=== PATIENT | female | born 1950 | race Caucasian/White ===

== ENCOUNTER 2017-02-12 09:14 | Observation (INO) | payer OTHER ==
[2017-02-12] VITALS (7 sets, daily range): BP systolic 95–161; BP diastolic 43–87
[~2017-02-12] VITALS: Ht 170.2 cm; Wt 180.9 kg
--- NOTE | 2017-02-12 10:22 | DIAGNOSTIC IMAGING REPORT ---
PROCEDURE: XR FOOT 3 VIEWS - RIGHT INDICATION: TRAUMA/INJURY TECHNIQUE: Three views. COMPARISON: None. FINDINGS: Osseous structures and joint spaces are normal in the foot. There is a medial malleolar fracture. IMPRESSION: 1. Normal right foot.
--- NOTE | 2017-02-12 10:24 | DIAGNOSTIC IMAGING REPORT ---
PROCEDURE: XR ANKLE 3 OR 4 VIEWS - RIGHT INDICATION: TRAUMA/INJURY TECHNIQUE: Four views. COMPARISON: None. FINDINGS: Comminuted fracture through the distal tibia and the medial malleolus. There is asymmetry of the ankle mortise. IMPRESSION: 1. Comminuted fracture through the distal tibia and the medial malleolus.
--- NOTE | 2017-02-12 10:52 | ED ORDER SUMMARY ---
..... Patient: BELINDA DELVALLE OrderSheet [facility] VisitID: [id number] [place] [address] 66y, F Registration Date/Time: 02/12/2017 ORDER SHEET Weight: 172.3 kg (stated) Allergies: Percocet GENERAL ORDERS: Ankle 3 or 4V Right Urgent (09:45 02/12/2017 Ana Lilia HURD) (Ack 9:46 Dawna) (10:15 KWdede R.N.) Foot 3V Right Urgent (09:46 02/12/2017 Ana Lilia HURD) (Ack 9:47 Dawna) (10:15 Maria De Jesus R.N.) Chest 1V Urgent (10:52 02/12/2017 Ana Lilia HURD) (Ack 11:04 Dawna) (11:30 NKneeland R.N.) Cardiac Panel Stat (10:52 02/12/2017 Ana Lilia HURD) (Ack 11:04 Dawna) (11:29 NKneeland R.N.) EKG - ER Stat (10:52 02/12/2017 Ana Lilia HURD) (Ack 11:04 Dawna) (11:29 LNations ER Tech1) (11:30 NKneeland R.N.) PT with INR Urgent (13:03 02/12/2017 Ana Lilia HURD) (Ack 13:07 Dawna) PTT Urgent (13:03 02/12/2017 Ana Lilia HURD) (Ack 13:07 Dawna) MEDICATION ORDERS: IV FLUIDS: IV NS : initial bolus none -, then 150 mL/hr for 4h (NOW); Routine (10:52 02/12/2017 Ana Lilia HURD) (Ack 10:55 Palmer R.N.) (11:46 KWdede R.N.) ORDER SHEET NOTES: [Electronically signed by Yesika Giordano R.N. (14:27 02/12/2017)] [Electronically signed by Jere Barber MD (16:14 02/12/2017)] [Electronically locked/signed by Yesika Giordano R.N. (14:27 02/12/2017)]
--- NOTE | 2017-02-12 10:52 | ED ORDER SUMMARY ---
..... Patient: BELINDA DELVALLE OrderSheet [facility] VisitID: [id number] [place] [address] 66y, F Registration Date/Time: 02/12/2017 ORDER SHEET Weight: 172.3 kg (stated) Allergies: Percocet GENERAL ORDERS: Ankle 3 or 4V Right Urgent (09:45 02/12/2017 Ana Lilia HURD) (Ack 9:46 Dawna) (10:15 KWdede R.N.) Foot 3V Right Urgent (09:46 02/12/2017 Ana Lilia HURD) (Ack 9:47 Dawna) (10:15 Maria De Jesus R.N.) Chest 1V Urgent (10:52 02/12/2017 Ana Lilia HURD) (Ack 11:04 Dawna) (11:30 NKneeland R.N.) Cardiac Panel Stat (10:52 02/12/2017 Ana Lilia HURD) (Ack 11:04 Dawna) (11:29 NKneeland R.N.) EKG - ER Stat (10:52 02/12/2017 Ana Lilia HURD) (Ack 11:04 Dawna) (11:29 LNations ER Tech1) (11:30 NKneeland R.N.) PT with INR Urgent (13:03 02/12/2017 Ana Lilia HURD) (Ack 13:07 Dawna) PTT Urgent (13:03 02/12/2017 Ana Lilia HURD) (Ack 13:07 Dawna) MEDICATION ORDERS: IV FLUIDS: IV NS : initial bolus none -, then 150 mL/hr for 4h (NOW); Routine (10:52 02/12/2017 Ana Lilia HURD) (Ack 10:55 Palmer R.N.) (11:46 KWdede R.N.) ORDER SHEET NOTES: [Electronically signed by Yesika Giordano R.N. (14:27 02/12/2017)] [Electronically signed by Jere Barber MD (16:14 02/12/2017)] [Electronically locked/signed by Yesika Giordano R.N. (14:27 02/12/2017)]
--- NOTE | 2017-02-12 10:52 | ED NURSING NOTES ---
Clinical Report - Nurses [facility] [address] [place] [address] 02/12/2017 9:18 Patient: BELINDA DELVALLE TRIAGE Triage time 09:12. Acuity: LEVEL 3. Chief Complaint: FALL OFF A CHAIR. Alert. No acute distress. SEPSIS SCREEN: Sepsis Screen. Negative (no infection suspected/documented). Respiratory rate greater than 20. Temperature not greater than 38.3 degrees C (101 degrees F). Heart rate not greater than 90. MARSHA COMA SCORE: [place] Coma Scale: 15- eyes open spontaneously (4); best verbal response- oriented x 4 (5); best motor response- obeys commands (6). --09:21 Yesika Giordano R.N. 09:15 02/12/17. BP: 159/64. HR: 78. RR: 22. O2 saturation: 98% on room air. Temp: 98.8 F (oral). Pain level now 5/10. --09:21 Yesika Giordano R.N. Weight: 172.3 kg stated. Height/Length: 67 inches Per Patient. BMI: 59.5. --09:15 Yesika Giordano R.N. Medications None. --09:18 Yesika Giordano R.N. Medication/allergy information source: the patient. --09:21 Yesika Giordano R.N. Allergies Percocet.(nausea) (severe headache) --12:22 Yesika Giordano R.N. The following entry was struck by Yesika Giordano R.N., 12:21 (02/12/17) Reason - other. <<STRICKEN ENTRY-- No Known Drug Allergy. --09:18 Yesika Giordano R.N. --END STRIKE>>. History Arrived by private vehicle. Historian: EMS and patient. Primary physician (NO PCP). ( pt was on her new deck in her wheelchair sunday and rolled off the edge of the deck, falling approx 22 inches. C/O right ankle and foot pain since sunday. States she had back surgery in 2013 and has had some right foot deficits and neuropathy since the surgery.). Location of injuries: right ankle and right foot. This occurred (2 days ago). Occurred at home. Trauma activation: Pre-hospital notification of patient arrival was received. SOCIAL HX: Never smoker. No alcohol use or drug use. ABUSE ASSESSMENT: Abuse assessment: The patient was asked "Do you feel safe in your home?". No report of abuse. FALL RISK ASSESSMENT: Fall risk assessment completed. No fall risk identified. NUTRITIONAL RISK ASSESSMENT: The nutritional risk assessment revealed no deficiencies. FUNCTIONAL ASSESSMENT: Functional assessment: no impairments noted. LEARNING NEEDS ASSESSMENT: The learning needs assessment revealed no barriers. SKIN INTEGRITY ASSESSMENT: Skin integrity risk assessment completed. No skin integrity risk identified. --09:21 Yesika Giordano R.N. Treatment CDA TEACHER: EMS treatment CDA TEACHER verbally communicated. BP: 140/70. HR: 70. RR: 20. O2 saturation: 97 % room air. Upon arrival patient awake. --09:24 Yesika Giordano R.N. PROBLEMS: Back Pain. Obesity. Sciatica. Herniated Disk. --09:20 Yesika Giordano R.N. ADDITIONAL SURGERIES: Back Surgery. Breast Augmentation. Tish burton. --09:20 Yesika Giordano R.N. Assessment GENERAL / NEURO / PSYCH: Alert. Oriented X 4. Appears in no acute distress. Patient appears calm and cooperative. RESPIRATORY: Respirations not labored. CVS: Pulses: right dorsalis pedis 3+ and left dorsalis pedis 3+. Capillary refill less than 2 seconds. GI / : Abdomen soft. --09:21 Yesika Giordano R.N. Interventions ID band on patient. To treatment room. --09:21 Yesika Giordano R.N. PHYSICAL ASSESSMENT To room via stretcher. GENERAL / NEURO / PSYCH: Alert. Oriented X 4. Appears in no acute distress. RESPIRATORY: Respirations not labored. CVS: Capillary refill less than 2 seconds. GI / : Abdomen soft. EXTREMITIES: Neuro-vascular status intact to the extremity. Right ankle: tenderness (slight swelling to R ankle). Right foot: tenderness. SKIN: Skin is warm and dry. --09:22 Yesika Giordano R.N. NURSING PROGRESS NOTES The plan of care for this patient has been created. Cold pack applied to the right ankle. Extremity elevated. Call light placed in reach. Bed placed in lowest position. Brakes of bed on. --09:23 Yesika Giordano R.N. ( H&P form given to patient.). --10:58 Shira Prather EKG time: (1147). EKG was ordered, performed by a tech and shown to the ED physician. --11:30 Gena Ernandez ER Tech1 11:31 02/12/2017 Site #1 started via IV in the left forearm with an 20g angiocath, with aseptic technique and good blood return; one attempt. Blood drawn: rainbow set. Labeled in the presence of the patient and sent to the lab. Saline lock flushed with 10 mL saline. --11:46 Yesika Giordano R.N. 11:41 02/12/2017 Started bag #1 1000 mL IV Fluids IV NS (Saline); at 150 mL/hr over 4 hour(s) via site #1. Allergies verified and confirmed 5 rights. IV patency established. IV site checked: no pain, redness, or swelling. IV flushed thoroughly pre- and post-medication administration. --11:46 Yesika Giordano R.N. Patient ID band checked for patient name, birthdate and medical record number: patient confirmed. Catheterized urine collected with return of yellow-colored clear urine; odor is foul-smelling; sample sent to lab for urinalysis. Specimen labeled in the presence of the patient. Call light placed in reach of patient. --11:48 Geeta Gonzalez R.N. 11:46 02/12/17. BP: 161/54. HR: 76. RR: 18. O2 saturation: 96%. Pain level now: 11/06. Additional comments: pain located r ankle. --11:48 Geeta Gonzalez R.N. DISPOSITION / DISCHARGE 13:13 02/12/17. Departure time: 1313. Admitted via Surgery. Report was given to a nurse in person. Report included patient's care, treatment, medications, reviewed medication reconcilliation, and condition (including any recent changes or anticipated changes). All questions were answered. (OFFICE SUPPORT SPECIALIST). Patient's personal items; items were transported with the patient. --13:13 Yesika Giordano R.N. Report was given. (Cheryl). --13:16 Yesika Giordano R.N. 13:15 02/12/17. BP: 149/63. HR: 74. RR: 16. O2 saturation: 95% on room air. Pain level now 0/10. --13:16 Yesika Giordano R.N. Locked/Released at 02/12/2017 14:27 by Yesika Giordano R.N.
--- NOTE | 2017-02-12 10:52 | ED NURSING NOTES ---
Clinical Report - Nurses [facility] [address] [place] [address] 02/12/2017 9:18 Patient: BELINDA DELVALLE TRIAGE Triage time 09:12. Acuity: LEVEL 3. Chief Complaint: FALL OFF A CHAIR. Alert. No acute distress. SEPSIS SCREEN: Sepsis Screen. Negative (no infection suspected/documented). Respiratory rate greater than 20. Temperature not greater than 38.3 degrees C (101 degrees F). Heart rate not greater than 90. MARSHA COMA SCORE: [place] Coma Scale: 15- eyes open spontaneously (4); best verbal response- oriented x 4 (5); best motor response- obeys commands (6). --09:21 Yesika Giordano R.N. 09:15 02/12/17. BP: 159/64. HR: 78. RR: 22. O2 saturation: 98% on room air. Temp: 98.8 F (oral). Pain level now 5/10. --09:21 Yesika Giordano R.N. Weight: 172.3 kg stated. Height/Length: 67 inches Per Patient. BMI: 59.5. --09:15 Yesika Giordano R.N. Medications None. --09:18 Yesika Giordano R.N. Medication/allergy information source: the patient. --09:21 Yesika Giordano R.N. Allergies Percocet.(nausea) (severe headache) --12:22 Yesika Giordano R.N. The following entry was struck by Yesika Giordano R.N., 12:21 (02/12/17) Reason - other. <<STRICKEN ENTRY-- No Known Drug Allergy. --09:18 Yesika Giordano R.N. --END STRIKE>>. History Arrived by private vehicle. Historian: EMS and patient. Primary physician (NO PCP). ( pt was on her new deck in her wheelchair sunday and rolled off the edge of the deck, falling approx 22 inches. C/O right ankle and foot pain since sunday. States she had back surgery in 2013 and has had some right foot deficits and neuropathy since the surgery.). Location of injuries: right ankle and right foot. This occurred (2 days ago). Occurred at home. Trauma activation: Pre-hospital notification of patient arrival was received. SOCIAL HX: Never smoker. No alcohol use or drug use. ABUSE ASSESSMENT: Abuse assessment: The patient was asked "Do you feel safe in your home?". No report of abuse. FALL RISK ASSESSMENT: Fall risk assessment completed. No fall risk identified. NUTRITIONAL RISK ASSESSMENT: The nutritional risk assessment revealed no deficiencies. FUNCTIONAL ASSESSMENT: Functional assessment: no impairments noted. LEARNING NEEDS ASSESSMENT: The learning needs assessment revealed no barriers. SKIN INTEGRITY ASSESSMENT: Skin integrity risk assessment completed. No skin integrity risk identified. --09:21 Yesika Giordano R.N. Treatment ZIG ZAG SPRING MACHINE OPERATOR: EMS treatment ZIG ZAG SPRING MACHINE OPERATOR verbally communicated. BP: 140/70. HR: 70. RR: 20. O2 saturation: 97 % room air. Upon arrival patient awake. --09:24 Yesika Giordano R.N. PROBLEMS: Back Pain. Obesity. Sciatica. Herniated Disk. --09:20 Yesika Giordano R.N. ADDITIONAL SURGERIES: Back Surgery. Breast Augmentation. Tish burton. --09:20 Yesika Giordano R.N. Assessment GENERAL / NEURO / PSYCH: Alert. Oriented X 4. Appears in no acute distress. Patient appears calm and cooperative. RESPIRATORY: Respirations not labored. CVS: Pulses: right dorsalis pedis 3+ and left dorsalis pedis 3+. Capillary refill less than 2 seconds. GI / : Abdomen soft. --09:21 Yesika Giordano R.N. Interventions ID band on patient. To treatment room. --09:21 Yesika Giordano R.N. PHYSICAL ASSESSMENT To room via stretcher. GENERAL / NEURO / PSYCH: Alert. Oriented X 4. Appears in no acute distress. RESPIRATORY: Respirations not labored. CVS: Capillary refill less than 2 seconds. GI / : Abdomen soft. EXTREMITIES: Neuro-vascular status intact to the extremity. Right ankle: tenderness (slight swelling to R ankle). Right foot: tenderness. SKIN: Skin is warm and dry. --09:22 Yesika Giordano R.N. NURSING PROGRESS NOTES The plan of care for this patient has been created. Cold pack applied to the right ankle. Extremity elevated. Call light placed in reach. Bed placed in lowest position. Brakes of bed on. --09:23 Yesika Giordano R.N. ( H&P form given to patient.). --10:58 Shira Prather EKG time: (1147). EKG was ordered, performed by a tech and shown to the ED physician. --11:30 Gena Ernandez ER Tech1 11:31 02/12/2017 Site #1 started via IV in the left forearm with an 20g angiocath, with aseptic technique and good blood return; one attempt. Blood drawn: rainbow set. Labeled in the presence of the patient and sent to the lab. Saline lock flushed with 10 mL saline. --11:46 Yesika Giordano R.N. 11:41 02/12/2017 Started bag #1 1000 mL IV Fluids IV NS (Saline); at 150 mL/hr over 4 hour(s) via site #1. Allergies verified and confirmed 5 rights. IV patency established. IV site checked: no pain, redness, or swelling. IV flushed thoroughly pre- and post-medication administration. --11:46 Yesika Giordano R.N. Patient ID band checked for patient name, birthdate and medical record number: patient confirmed. Catheterized urine collected with return of yellow-colored clear urine; odor is foul-smelling; sample sent to lab for urinalysis. Specimen labeled in the presence of the patient. Call light placed in reach of patient. --11:48 Geeta Gonzalez R.N. 11:46 02/12/17. BP: 161/54. HR: 76. RR: 18. O2 saturation: 96%. Pain level now: 11/06. Additional comments: pain located r ankle. --11:48 Geeta Gonzalez R.N. DISPOSITION / DISCHARGE 13:13 02/12/17. Departure time: 1313. Admitted via Surgery. Report was given to a nurse in person. Report included patient's care, treatment, medications, reviewed medication reconcilliation, and condition (including any recent changes or anticipated changes). All questions were answered. (MEDICAL RECORD TECHNICIAN). Patient's personal items; items were transported with the patient. --13:13 Yesika Giordano R.N. Report was given. (Cheryl). --13:16 Yesika Giordano R.N. 13:15 02/12/17. BP: 149/63. HR: 74. RR: 16. O2 saturation: 95% on room air. Pain level now 0/10. --13:16 Yesika Giordano R.N. Locked/Released at 02/12/2017 14:27 by Yesika Giordano R.N.
--- NOTE | 2017-02-12 10:52 | ED CLINICAL REPORT ---
Clinical Report - Physicians/Mid Levels [facility] [address] [place] [address] 02/12/2017 9:18 Patient: BELINDA DELVALLE Time Seen: 09:35 Feb 12 2017. Arrived- By ambulance. Historian- patient and EMS personnel. CPT: ER phys charges level 5 plus (#[id number]). EKG interpretation (#[id number]). HISTORY OF PRESENT ILLNESS Chief Complaint: Injury to the right ankle. The injury happened today. The patient sustained a twisting injury. Fell. Occurred at home. ( ( pt was on her new deck in her wheelchair sunday and rolled off the edge of the deck, falling approx 22 inches. C/O right ankle and foot pain since sunday. States she had back surgery in 2013 and has had some right foot deficits and neuropathy since the surgery.). Location of injuries: right ankle and right foot. This occurred (2 days ago). Occurred at home.). Patient is experiencing moderate pain. No other injury. REVIEW OF SYSTEMS The patient complains of pain on weight bearing. She has had swelling,, tingling, and weakness. No suspected foreign body, skin laceration, lesions or rash or chills. No fever, nasal congestion, sore throat, chest pain or cough. No difficulty breathing, palpitations, abdominal pain, black stools or bloody stools. No diarrhea, nausea, vomiting, urinary frequency or fainting episodes. No weakness, diabetic symptoms, easy bruising or difficulty with urination. She has had calf pain and pedal edema and complains of pain on weight bearing. All systems otherwise negative, except as recorded above. PAST HISTORY Back Pain. Obesity. Sciatica. Herniated Disk. ADDITIONAL SURGERIES: Back Surgery. Breast Augmentation. Tummy tuck. Medications: None. Allergies: No Known Drug Allergy. SOCIAL HISTORY Never smoker. No alcohol use or drug use. ADDITIONAL NOTES The nursing notes have been reviewed. PHYSICAL EXAM Vital Signs: 02/12/2017 09:15 BP: 159/64. HR: 78. RR: 22. O2 saturation: 98%. Temp: 98.8 F. Appearance: Alert. Appears to be in pain. Patient in moderate distress. Head: Head atraumatic. Eyes: Eyes normal inspection. ENT: Pharynx normal. Neck: Normal inspection. Neck supple. C-spine non-tender. CVS: Normal heart rate and rhythm. Heart sounds normal. Pulses normal. No decreased pulses. Respiratory: No respiratory distress. Breath sounds normal. Chest nontender. Abdomen: Soft and nontender. Bowel sounds normal. Back: Normal inspection. No tenderness. Skin: Skin intact. No cyanosis. Skin warm. Extremities: Right lateral ankle: moderate tenderness, swelling and deformity consistent with a fracture and medium sized ecchymosis of the lateral ligaments moderate and lateral malleolus. Limited ROM secondary to pain. Joint effusion present. Neurovascular intact distally. No ligamentous laxity present. Right foot: moderate tenderness and mild swelling located in the proximal aspect of the foot. Limited weight bearing secondary to pain. Neurovascular intact distally. No abrasion, ecchymosis or deformity. Foot and ankle exam otherwise negative. Extremities otherwise negative. Gait: Gait not tested due to pain. Neuro, Vascular and Tendons: Vascular status intact. Sensation intact. Motor intact. Neuro: Oriented X 3. No motor deficit. No sensory deficit. LABS, X-RAYS, AND EKG EKG: No acute ischemia. Normal sinus rhythm. Normal P waves. Normal KATIUSKA. Decreased QRS voltage in the limb leads. Normal axis. Normal ST and T waves. Prior EKG unavailable. The study has been interpreted contemporaneously. The study has been independently viewed by me. The EKG appears to be a good tracing. X-Rays: Chest X-ray negative. Right foot negative. Rt Ankle X-ray: Moderately displaced, minimally angulated, comminuted, oblique fracture of the right tibia, (Intra-articular). Views: 3 view ankle series. Technique: good. The X-rays were independently viewed by me and interpreted contemporaneously by me. Prior films were not available for comparison. Laboratory Tests: CBC w Diff: (JARAD: 02/12/2017 11:25) ( MsgRcvd 02/12/2017 11:41) Final results Test Result Flag Units (Reference) WHITE BLOOD COUNT 11.5 K/uL (4.5-11.5) RED BLOOD COUNT 4.57 M/uL (4.00-5.20) HEMOGLOBIN 12.9 gm/dL (12.0-16.0) HEMATOCRIT 38.9 % (36.0-46.0) MEAN CELL VOLUME 85 fL (80-100) MEAN CORPUSCULAR HGB 28 pg (26-34) MEAN CORPUSCULAR HGB CONC 33 g/dL (31-37) RED CELL DISTRIBUTION WIDTH 14.0 % (11.6-14.8) PLATELET COUNT 227 K/uL (150-400) NEUTROPHIL % 70.4 % (50-75) LYMPH % 19.7 L % (25-40) MONO % 7.8 % (3-14) EOSINOPHIL % 1.0 % (0-4) BASOPHIL % 1.1 % (0-2) CHEM 13 PANEL: (JARAD: 02/12/2017 11:25) ( MsgRcvd 02/12/2017 11:57) Final results Test Result Flag Units (Reference) GLUCOSE 121 H mg/dL (70-110) BUN 10 mg/dL (7-18) CREATININE 0.8 mg/dL (0.6-1.3) Estimated GFR >60 mL/min Estimated GFR- >60 mL/min Note: Persistent reduction over 3 months in eGFR<60 mL/min/1.73 m2 defines CKD. Patients with eGFR values>=60 mL/min/1.73 m2 may also have CKD if evidence ofpersistent proteinuria. Additional information may be foundat www.kidney.org. SODIUM 141 mmol/L (136-145) POTASSIUM 3.9 mmol/L (3.5-5.1) CHLORIDE 105 mmol/L (98-107) CARBON DIOXIDE 28 mmol/L (21-32) CALCIUM 8.8 mg/dL (8.5-10.1) TOTAL PROTEIN 7.8 g/dL (6.4-8.2) ALBUMIN 3.6 g/dL (3.3-5.0) BILIRUBIN, TOTAL 0.7 mg/dL (0.0-1.0) ALKALINE PHOSPHATASE 74 U/L (46-116) AST (SGOT) 21 U/L (15-37) ALT (SGPT) 30 U/L (12-78) MAGNESIUM 2.1 mg/dL (1.8-2.4) CPK 199 U/L (24-260) TROPONIN I <0.05 L ng/mL (0.00-1.5) TROPONIN REFERENCE RANGE:<0.1 NEGATIVE0.1-1.5 INDETERMINANT>1.5 POSITIVE . PROGRESS AND PROCEDURES Course of Care: CXR pending. Dr Gregory here to see patient. Discussed case with on-call health care provider, (Colt). Reviewed test results. Agreed upon treatment plan and decision to admit. Health care provider will see patient in ED. Patient/family counseled. Disposition orders written. Disposition: Admitted to Acute Care via Surgery. (Electronically signed by Jere Barber MD 02/12/2017 16:14)
--- NOTE | 2017-02-12 12:05 | DIAGNOSTIC IMAGING REPORT ---
PROCEDURE: XR CHEST 1 VIEW INDICATION: PRE-OP TECHNIQUE: Portable AP view 11:18 a.m. COMPARISON: None. FINDINGS: Lungs are clear. Heart and mediastinum are normal. Thorax is normal. IMPRESSION: 1. Negative chest.
--- NOTE | 2017-02-12 16:14 | ED MAR SUMMARY ---
..... Medication Administration Record [facility] [address] [place] [address] Patient: BELINDA DELVALLE Visit ID: [id number] 66y, F Weight: 172.3 kg Height/Length: 67 in BMI: 59.5 ALLERGIES: Percocet Start 11:41 02/12/2017 Yesika Giordano RMeeta Medication Administered: IV NS (SALINE), Dose: IV Fluids over 4 hour(s), Rate: 150 mL/hr, Dispensed: 1000 mL bag, Site: #1 left forearm. Medication Ordered: IV NS : initial bolus none -, then 150 mL/hr for 4h (NOW); Routine.
--- NOTE | 2017-02-12 16:14 | ED MAR SUMMARY ---
..... Medication Administration Record [facility] [address] [place] [address] Patient: BELINDA DELVALLE Visit ID: [id number] 66y, F Weight: 172.3 kg Height/Length: 67 in BMI: 59.5 ALLERGIES: Percocet Start 11:41 02/12/2017 Yesika Giordano RMeeta Medication Administered: IV NS (SALINE), Dose: IV Fluids over 4 hour(s), Rate: 150 mL/hr, Dispensed: 1000 mL bag, Site: #1 left forearm. Medication Ordered: IV NS : initial bolus none -, then 150 mL/hr for 4h (NOW); Routine.
--- NOTE | 2017-02-12 16:14 | ED MED RECONCILIATION SUMMARY ---
Patient: BELINDA DELVALLE Medication Reconciliation Report [facility] VisitID: [id number] [address] [place] [address] 66y, F Registration Date/Time: 02/12/2017 Weight: 172.3 kg Height/Length: 67 in. BMI: 59.5 ALLERGIES: Percocet The patient's Home Medications are listed below: NONE. The source(s) of the original Home Medication information: patient The following Medications were given to the patient in the Emergency Department: IV NS IV Fluids bolus 0, then 150 mL/hr, administered: 02/12/2017 11:41:00 AM The following Medications were prescribed to the patient: None.
--- NOTE | 2017-02-12 16:14 | ED MED RECONCILIATION SUMMARY ---
Patient: BELINDA DELVALLE Medication Reconciliation Report [facility] VisitID: [id number] [address] [place] [address] 66y, F Registration Date/Time: 02/12/2017 Weight: 172.3 kg Height/Length: 67 in. BMI: 59.5 ALLERGIES: Percocet The patient's Home Medications are listed below: NONE. The source(s) of the original Home Medication information: patient The following Medications were given to the patient in the Emergency Department: IV NS IV Fluids bolus 0, then 150 mL/hr, administered: 02/12/2017 11:41:00 AM The following Medications were prescribed to the patient: None.
--- NOTE | 2017-02-12 16:40 | Operative Report ---
Operative Report Date of Surgery: February 12, 2017 Preoperate Diagnosis: right tibia fracture Postoperative Diagnosis: right tibia fracture Surgeon: Dahlia Gregory Procedure Performed: Open reduction internal fixation right tibia Anesthesia: Gen. Surgical Technique: The patient was taken to the operating room and under general anesthesia was prepped and draped in the usual fashion. A longitudinal incision was made over the anterolateral medial tibia. Subcutaneous tissues were parted sharply. Hemostasis was obtained with electrocautery. The fracture was exposed by subperiosteal dissection. Reduction was obtained and held with tenaculum clamps. Position was confirmed on the small C-arm. A 10 hole cloverleaf distal tibial plate was applied to the susaan-lateral side of the right tibia. The plate was applied with 9 screws. All the screws were locking. One screw hole was left empty at the fracture site. Position was again confirmed on C-arm and felt to be anatomic. The wound was copiously irrigated with saline solution. The deep tissue was closed with 0 Vicryl suture. The subcutaneous tissues were closed with 2-0 Vicryl suture. Skin was closed with skin shannan sterile dressing was applied and the patient was placed in a posterior splint and taken to the recovery room in stable condition.
--- NOTE | 2017-02-12 16:52 | NUR ---
PT IS AWAKE AND ALERT.PT DENIES PAIN OR NAUSEA. PT STATES SHE IS WARM AND COMFORTABLE. VSS. RIGHT LEG IS ELEVATED ON A TWO PILLOWS, ICE BAG PLACE UNDER PT'S RIGHT KNEE. DAVOL DRAIN IS IN PLACE DRAIING SMALL AMOUNT OF RED COLORED DRAINAGE. TALKED TO PT AND PT'S IN PACU. QUESTIONS ANSWERED.
[2017-02-12] MEDS ORDERED: MULTIPLE VITAMIN PO (20:19)
[2017-02-12] MEDS ORDERED: VITAMIN D-11000 UNIT PO (20:20)
--- NOTE | 2017-02-12 21:02 | NUR ---
PATIENT AT BEGINNING OF THE SHIFT, WAS COMPLAINING OF SHOOTING PAIN FROM HER TOES TO HER KNEE AREA. GIVEN IV DILAUDID 0.5M, WAS EFFECTIVE, PATIENT ON A 2 LITERS NASAL CANNULA AT 2 LITERS SATTING AT 90-92 PERCENT AND WHEN FALLING ASLEEP WOULD GO DOWN TO 86. PATIENT STATES HER NOSE IS STUFFY AND SHE IS BREATHING THROUGH HER MOUTH. PATIENT'S CO2 IS BETWEEN 28-42. PLACED PATIENT AT THIS TIME NOW ON THE OXYMASK AT 3 LITERS, SATURATION NOW AT 94 PERCENT. RR AT 9-12. WILL CONTINUE TO MONITOR. CALL LIGHT WITHIN REACH. PATIENT TURNED TO THE LEFT SIDE.
[2017-02-13] VITALS (7 sets, daily range): BP systolic 93–115; BP diastolic 45–51
--- NOTE | 2017-02-13 01:50 | NUR ---
PATIENT FAIRLY SENSITIVE TO DILAUDID, LAST DOSE WAS GIVEN AROUND 2100 AND PATIENT WAS BECOMING AT TIMES APNIC WHEN FALLING ASLEEP AND DESTTING TO 85 PERCENT AND RR TO 6-7. PATIENT WAS PROMTED TO BREATHE AND WAS RESPONDING AND SAYING SHE WASNT EVEN FALLING ASLEEP AND COULD HEAR THE ALARMS GO ON, EDUCATED PATIENT REGARDING IV PAIN MEDICATION AND RISKS OF OVER SEDATION BECAUSE SHE WAS SLIGHTLY FRUSTRATED ABOUT THE ALARMS. ONCE THE DILAUDID WORE OFF HOWEVER, PATIENT NOW SLEEPING WITH RR AT 14 AND CO2 OF 39 AND O2 SATURATION AT 95 PERCENT ON THE OXYMASK. PATIENT WAS TURNED AGAIN TO THE LEFT SIDE PER REQUEST. CALL LIGHT WITHIN REACH, WILL MONITOR. CMS INTACT, CAP REFILL <3 SECONDS, ABLE TO WIGGLE TOES. WAFFLE WAS PLACED ON THE BED AT THE BEGININNG OF SHIFT DUE TO PATIENT COMPLAIING OF SORE BUTTOM AND RISK OF BREAKDOWN.
--- NOTE | 2017-02-13 08:00 | NUR ---
Patient sitting up in bed eating breakfast. Patient tolerating PO intake. Denies nausea. Patient states right ankle pain is 2/10 no rx needed at this time. Patient alert and able to answer questions appropriately. Patient able to move herself around in bed with little assistance. Patient will be working with PT today. NWB right lower extremity. IV LFA patent 100cc/hr. Patient encouraged to cough and deep breath frequently. No sob noted. Patient uses a bedpan at this time. No complaints at this time. Pleasant and cooperative with care. Will continue to monitor.
--- NOTE | 2017-02-13 11:28 | NUR ---
pt supine in bed and agreeable to skilled PT intervention. pt completed supine to sit Min A with HOB at 45degrees. pt completed sit to stand using a 4WW Min A. Once standing pt completed 40ft of gait CGA using a 4WW. pt requested to return to bed. pt should ambulate 2-3x with nursing staff 30-40ft each time. pt continues to be recommended to d/c to SNF with PT to increase strength for safe basic functional mobility.
--- NOTE | 2017-02-13 13:43 | NUR ---
Patient transfered to room 208 from [facility]. Report given to RN on acute care. Patient transfered via bed accompanied by PLAYER DEVELOPMENT MANAGER's. Chart sent with patient.
--- NOTE | 2017-02-13 14:01 | NUR ---
1345- pt arrived to 208 from 302. she is alert, oriented. denies sob. VSS. pt taken off 1l of o2 and is now on RA. will recheck sats shortly. pt instructed to call if feels sob. reports pain is 1-2/10. declines additional pain medication at this time. R foot CMS intact- pt has numbness at basline due to hx of back surgery. cap refill <3 sec, minimal swelling, pedal pulse palpable under drsg. oriented to new room, call light in reach. R foot elevated/ice.
--- NOTE | 2017-02-13 15:01 | NUR ---
I discussed with the patient their current medications, possible side effects, and answered questions. KENDELL
--- NOTE | 2017-02-13 19:20 | NUR ---
PT A&OX3. IV PATENT. RLE HEMOVAC PATENT AND INTACT WITH SEROSANGUINOUS DRAINAGE. R-ANKLE PAIN REPORTED AT 10/06. PAIN MEDS GIVEN. REMINDING PT TO TURN OR REPOSITION Q2H. ENCOURAGING IS. VSS. RESTING IN BED WITH CALL LIGHT IN REACH.
--- NOTE | 2017-02-14 00:06 | NUR ---
Pt. is resting in bed at this time. States pain is 0-1/10 in R ankle. Hemovac functioning properly, R leg elevated on pillow. CMS intact, pulses palpable, skin warm to the touch, cap refill < 3 seconds. Pt. states she has baseline numbness from back surgery. Pt. is oriented, cooperative, pleasant. 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
[2017-02-14 03:22] VITALS: BP 100/50
[2017-02-14 08:18] VITALS: BP 151/63
--- NOTE | 2017-02-14 10:37 | NUR ---
pt sitting in bariatric chair upon arrival. pt completed 3 sit to stands using a bariatric FWW CGA. pt transferred from bariatric chair to [facility] using a FWW and pivoted left foot. pt maintained NWB on RLE. pt voided and completed pericare I. pt transferred back to the bariatric chair from the [facility] CGA using the FWW. Once seated pt comleted 7 reps of the following exericses: LAQ, seated marches without touching the floor, glute sets, HS sets, bicep curls with Red TB, shoulder flexion with red TB and shoulder abduction with red TB. pt given a sheet of exercises and instructed to completed 2-3x/day. pt is recommended to d/c to SNF with PT and OT to increase strength for safe functional mobility and ADLs.
[2017-02-14 11:46] VITALS: BP 154/61
[2017-02-14 14:43] VITALS: BP 153/56
--- NOTE | 2017-02-14 15:51 | NUR ---
NUTRITION NOTE: S: Pt admitted and s/p ORIF right ankle. Visited with pt today, states no hx/o diabetes. Would like info on weight loss and looking in to starting a weight loss program. Gave pt written and verbal info on weight loss following along the same lines as a diabetic type diet with small portions, less carbs, quality lean proteins, avoid large meals, etc. Pt appeared to understand and appreciate info given today. Also gave pt contact info for diabetes and nutrition program if she is interested in speaking with a dietitian as an outpatient. She is likely going to a Long Term Facility. O: Diet Rx: General NKFA Wts: 180.4 kg Ht: 67" BMI: 62.2 IBW: 65-74 kg %IBW: 243% ABW: ~105 kg Est Kcals: 1500 kcals per day Est Pro: ~75-100 g protein per day Meds Incl: aspirin, ketorolac, see emar for complete list/details Labs Rev'd: glucose 121 Julius Score: 17; fragile, waffle overlay in place. Pt with surgical inc r ankle A/P: Pt appreciated info given today. She is interested in weigh reduction program and this RD gave info but suggested pt be followed as an outpatient and gave contact info. BMI; morbid obesity. Rev'd labs. Rev'd meds. RD avail for further consult if desired and f/u per protocol.
--- NOTE | 2017-02-14 16:02 | NUR ---
PATIENT MRSA SWAB NEGATIVE, PER OVEN TENDER PT.REMOVED FROM ISOLATION . DR. SESAY DID DRESSING CHANGE THIS SHIFT WITH HELP FROM THIS NURSE, INCISION WELL APPROXIMATED, NO S/SXS OF INFECTION, MINIMAL SANGUINOUS DRAINAGE, AND 2/10 PAIN ON ASSESSMENT. WRAPED WITH GAUZE, SPLINT, AND JESSE WRAP, CMS INTACT BEFORE AND AFTER DRESSING CHANGE AND CAP REFIL <2 SECONDS. PATIENT WORKING WITH SUGAR GRINDER FOR DC PLAN. PER DR. SESAY NO ADDITIONAL DRESSING CHANGE NEEDED UNTIL FOLLOW UP APPOINTMENT IN 10 DAYS, DR. SESAY PULLED HEMOVAC THIS SHIFT, PATIENT TOLERATED WELL. PATIENT VOIDING WELL THIS SHIFT/ . [facility]
[2017-02-14 18:38] VITALS: BP 150/61
--- NOTE | 2017-02-14 22:20 | NUR ---
PT AMBULATED TO BSC BY FOLLOWING DIRECTIONS GIVEN FROM PT. URINE IS ODIFEROUS AND DARK, ENCORAGED FLUIDS. MINIMAL PAIN AT THIS TIME. WCTM.
[2017-02-14 22:31] VITALS: BP 147/60
[2017-02-15 02:49] VITALS: BP 151/54
[2017-02-15 06:20] VITALS: BP 149/61
--- NOTE | 2017-02-15 10:14 | Provider's Discharge Care Plan ---
Problem, Goal, Plan Problem List 1. Closed left tibial fracture Goals: Increase independence Instructions: Follow up as needed
--- NOTE | 2017-02-15 10:14 | Provider's Discharge Care Plan ---
Problem, Goal, Plan Problem List 1. Closed left tibial fracture Goals: Increase independence Instructions: Follow up as needed
[2017-02-15 10:21] VITALS: BP 153/57
[2017-02-15] MEDS ORDERED: ULTRAM EQIVALEN50 MG PO (11:01)
[2017-02-15 15:30] VITALS: BP 145/46
--- NOTE | 2017-02-15 20:46 | NUR ---
LATE ENTRY: AT 1600 CALLED REPORT TO NURSE DEBBIE AT [facility]. PER DEBBIE, VERIFIED WITH DR. SESAY THAT ASA TO BE DC'D, THIS WAS CORRECT AND COMMUNICATED. PATIENT LEFT VIA TRANSPORT CABULANCE IN HER OWN W/C. GIVEN PAIN MEDICATION PRIOR TO DC, DRESSED, AND IV DC'D TO R HAND, CATHETER TIP INTACT AND PRESSURE DRESSING APPLIED USING COBAN AND GAUZE. PATIENT STATED DENIES FURTHER QUESTIONS PRIOR TO DC, AND HAD TWO LARGE BM'S PRIOR TO DC. PAIN RATING 1/10 AT TIME OF DC. DEBBIE STATED THAT SHE ALSO HAD NO FURTHER QUESTIONS BUT HAS OUR # HERE AND WILL CALL IF QUESTIONS ARIVE. PATIENT LEFT WITH AT 1800 - ESCORTED BY RADIOCOMMUNICATIONS TECHNICIAN.
--- NOTE | 2017-02-16 10:17 | HISTORY AND PHYSICAL ---
ADMITTED: 02/12/17 HISTORY OF PRESENT ILLNESS: The patient is a 66-year-old female who fell on the day of prior to admission and came to the [facility] on February 12, 2017. She was found to have a comminuted fracture of the distal tibia extending into the joint. She was admitted for open reduction and internal fixation. MEDICAL/SURGICAL HISTORY: She has a past history of back pain, obesity, sciatica and herniated disk. Surgical history: For lumbar surgery, cervical surgery, breast augmentation, tummy tuck. MEDICATIONS: 1. She takes no medications. ALLERGIES: 1. Positive for allergy to PERCOCET. FAMILY HISTORY: SOCIAL HISTORY: She does not smoke. She does not use alcohol or drugs. REVIEW OF SYSTEMS: PHYSICAL EXAMINATION: VITAL SIGNS: She, on admission, had normal vital signs. GENERAL: She was oriented x3. HEENT: She had normal HEENT examination. Neck was supple. CHEST: Chest was clear. HEART: Regular rate and rhythm. ABDOMEN: Obese. No masses palpated. EXTREMITIES: Soft tissue swelling and ecchymosis about the right ankle. She had normal sensation in her left leg but in the right leg had some diminished sensation and weakness from her previous lumbar surgery. IMPRESSION: 1. Right distal tibia fracture. PLAN: The patient was admitted for care. The patient was taken to the operating room on February 12 with a plate over the right distal tibia. Dressing was changed. Her wound looks good. She is going to be discharged to a SNF unit. She is nonweightbearing on the right, and she will return for followup in one [facility] to [facility] to have her sutures removed. She is discharged on tramadol for pain. Regular diet.
== END 2017-02-15 18:00 ==
LOC: ED SRH 09:14 → TRANS SRH 10:53 → ED SRH 10:53 → SDC SRH 11:58 → TRANS SRH 11:58 → CC SRH 11:58 → TRANS SRH 11:59 → SDC SRH 12:00 → CC SRH 12:01 → ACUTE2 SRH 12:01 → CC SRH 12:01 → TRANS SRH 17:39 → CC SRH 17:39 → ACUTE2 SRH 02-13 14:02
PROVIDERS: ADMIT Orthopaedic Surgery
PROC: 0QSG04Z Reposition Right Tibia with Internal Fixation Device, Open Approach (ICD-10-PCS; principal; 2017-02-12 13:00)
DX: S82.301A Unspecified fracture of lower end of right tibia, initial encounter for closed fracture (principal); W17.89XA Other fall from one level to another, initial encounter; V00.818A Other accident with wheelchair (powered), initial encounter; Y92.098 Other place in other non-institutional residence as the place of occurrence of the external cause; Y99.8 Other external cause status; M54.16 Radiculopathy, lumbar region